=== PATIENT | male | born 1965 | race Caucasian/White ===

== ENCOUNTER → 2023-04-25 | Outpatient (CLI) | payer MEDICAID ==
[~2023-04-25] VITALS: Ht 207 cm; Wt 103.4 kg
[2023-04-25 07:34] VITALS: PULSE 72; RESP 16; O2SAT 96
[2023-04-25] MEDS: albuterol 2.5 MG/3 ML nebule NEB ONE (07:39)
== END | disposition home or self-care (01) ==
LOC: RT 06:57
PROVIDERS: ATTEND Registered Nurse
DX: R09.89 Other specified symptoms and signs involving the circulatory and respiratory systems (principal)
CPT/HCPCS: 94060; 94760

== ENCOUNTER 2024-08-26 14:37 | Inpatient (IN) | payer MEDICAID ==
[~2024-08-26] VITALS: Ht 176.5 cm; Wt 93.6 kg
--- NOTE | 2024-08-26 14:50 | ELECTROCARDIOGRAPH REPORT ---
[facility] Test Date: 2024-08-26 Test Time: 14:40:41 Pat Name: SPENCER MACKENZIE Department: EMERGENCY ROOM Room: Gender: M Manager Customer: ANN : 1965 Requested By: NANCY BAUTISTA Order Number: [id number] Reading MD: Measurements Intervals [place] Rate: 82 P: 43 MO: 162 QRS: -17 QRSD: 149 T: 49 QT: 394 QTc: 461 Interpretive Statements Sinus rhythm Right bundle branch block Please click the below link to view image of tracing.
[2024-08-26 15:10] LABS: MEAN PLATELET VOLUME 6.4 FL (7.4-10.4); RED CELL DISTRIBUTION WIDTH 12.9 % (11.5-14.5)
[2024-08-26 15:19] LABS: CREATININE 1.23 MG/DL (0.60-1.10); TOTAL CARBON DIOXIDE 29.9 MMOL/L (24-32); eCRCL 66 ML/MIN; eGFR 60 ML/MIN
--- NOTE | 2024-08-26 15:26 | RADIOLOGY REPORT ---
DI CHEST,SINGLE VIEW, HISTORY: CP COMPARISON: None None TECHNICAL DATA: 1 view of the chest was obtained. FINDINGS: Lines and tubes: None Cardiomediastinal silhouette: normal Pulmonary vasculature: normal Lung expansion: normal Lung airspace: normal Lung interstitium: normal Pleura: normal Pneumothorax: no Bones: Unremarkable Other: no IMPRESSION: No acute intrathoracic abnormality.
[2024-08-26 15:27] LABS: PRO BRAIN NATRIURETIC PEPTIDE 106 PG/ML (0-125)
--- NOTE | 2024-08-26 17:08 | Physician Documentation ---
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 Patient noticed a cloud that moves in his visual field and just the right eye and has had black spots in his field of vision of both eyes since shortly after 9:00 a.m. this morning. Patient went to urgent care and they were unable to assist them and his who works for an [employer] took him to the [employer] for evaluation of the retina. He had his eye dilated in the retina evaluated and there was no evidence of retinal detachment or other acute ophthalmological emergency. Patient has also had headaches on and off for several weeks. Patient has a current headache a 6/10 in his diffuse. Patient then states that he had an episode of slurred speech that lasted maybe 15 minutes this morning. The exact time is unclear. Last known normal time is 9:00 a.m.. Patient also states that he had some sharp chest pain yesterday while at work that lasted maybe 15 minutes with no associated symptoms. Review of systems: All systems were reviewed and are negative except for what is indicated in the history of present illness. Past Medical History: None Past Surgical History: None Social History: No tobacco use, no alcohol use, no drug use Medications: Reviewed as documented Nursing Notes Allergies: Reviewed as documented in Nursing Notes Medication Reconciliation Allergies: Coded Allergies: Penicillins (Verified Allergy, Unknown, 08/26/24) Scheduled Aspirin (Aspirin EC), 1 TAB PO DAILY, (Reported) Atorvastatin Calcium (Atorvastatin Calcium), 1 TAB PO DAILY, (Reported) Baclofen (Baclofen), 1 TAB PO DAILY, (Reported) Scheduled PRN Cyclobenzaprine* (Cyclobenzaprine*), 1 TAB PO TID PRN for pain, (Reported) Review of Systems All Other Systems at this time: Reviewed and Negative ROS Patient denies any other acute symptoms other than above. All other systems are negative Physical Exam Vital Signs: RN Vital Signs have been reviewed: Yes, Temperature: 98.3, Source: Temporal, Heart Rate: 66, Respiratory Rate: 14, BP: 139/91, Pulse Oximetry: 97, Weight: 93.640 Oxygen Flow Rate: 0 Pulse Oximetry Reflects: adequate oxygenation General Appearance General Appearance: No distress HEENT: Normal OP, moist oral mucosa, right pupil is dilated compared to the left secondary to recent a dry so from the [employer]. Pupil is sluggish. Retina appears unremarkable. Normal vessels, normal disc and cup. No evidence of retinal detachment., EOMI Neck: supple, normal ROM, trachea midline Pulmonary: No respiratory distress, CTA, BS equal Cardiac: RRR, no murmur, rub or gallop, GI: nondistended, soft, nontender, normal bowel sounds, no guarding, no rebound Extremities: normal ROM, no swelling, non-tender Skin: intact, dry, warm, no rashes Neuro: AAOx3, speech is clear, no focal motor weakness Psych: normal affect, good eye contact, no apparent hallucination, normal speech Progress Progress Note Spoke with tele neurologist regarding patient's symptoms of vision changes. Recommends continuing his aspirin into admit for MRI and further evaluation. Not a TNK candidate Results/Orders Results/Orders Orders - NANCY BAUTISTA MD Chest,Single View (08/26/24 14:49) Monitor (08/26/24 14:49) Saline Lock (08/26/24 14:49) Oxygen (08/26/24 14:49) Ct Stroke Alert (08/26/24 17:20) Cta Neck/Head (08/26/24 17:24) [place] Prov.Neuro Consult (08/26/24 17:08) Completed Orders - NANCY BAUTISTA MD Chest,Single View (08/26/24 14:49) Cbc/Diff (08/26/24 14:49) PBNP (08/26/24 14:49) Electrocardiogram (08/26/24 14:49) Hs Troponin I W Calculations (08/26/24 14:49) Hs Troponin I W Calculations (08/26/24 16:49) Hs Troponin I W Calculations (08/26/24 17:49) CMP (08/26/24 14:49) Ct Stroke Alert (08/26/24 17:20) Cta Neck/Head (08/26/24 17:24) Prochlorperazine Inj (Compazine Inj) (08/26/24 17:10) Iohexol 350mg/Ml 100ml (Omnipaque 350mg/ (08/26/24 17:12) Aspirin 81mg Chew Tablet (Aspirin 81mg C (08/26/24 18:20) Lorazepam Tablet (Ativan Tablet) (08/26/24 18:30) Hgb A1c (08/26/24 14:44) MG (08/26/24 14:44) PHOS (08/26/24 14:44) TSH (08/26/24 14:44) Vital Signs 08/26/24 08/26/24 08/26/24 08/26/24 14:45 15:56 16:00 16:15 Temp 98.3 Pulse 79 66 Resp 18 15 14 B/P (MAP) 139/84 139/91 (107) Pulse Ox 98 97 O2 Flow Rate 0 0 08/26/24 08/26/24 08/26/24 08/26/24 17:30 19:19 19:53 21:03 Pulse 61 52 66 Resp 15 16 18 B/P (MAP) 135/93 (107) 125/80 (95) 169/114 (132) Pulse Ox 97 95 99 96 O2 Delivery Room Air* O2 Flow Rate 0 0 FiO2 21 Laboratory Tests Test 08/26/24 14:44 08/26/24 17:38 08/26/24 18:51 White Blood Count 7.7 Red Blood Count 4.85 Hemoglobin 15.0 Hematocrit 42.8 Mean Corpuscular Volume 88.3 Mean Corpuscular Hemoglobin 31.0 Mean Corpuscular Hemoglobin Concent 35.1 Red Cell Distribution Width 12.9 Platelet Count 280 Mean Platelet Volume 6.4 L Neutrophils (%) (Auto) 56.7 Lymphocytes (%) (Auto) 33.4 Monocytes (%) (Auto) 7.2 Eosinophils (%) (Auto) 2.2 Basophils (%) (Auto) 0.5 Neutrophils # (Auto) 4.4 Lymphocytes # (Auto) 2.6 Monocytes # (Auto) 0.6 Eosinophils # (Auto) 0.2 Basophils # (Auto) 0.0 CBC Comment Sodium Level 142 Potassium Level 3.9 Chloride Level 107 Carbon Dioxide Level 29.9 Anion Gap 5 L Blood Urea Nitrogen 19 H Creatinine 1.23 H Estimated GFR/1.73 m2 60 BUN/Creatinine Ratio 15.4 Glucose Level 103 Hemoglobin A1c 5.1 Calcium Level 9.4 Phosphorus Level 3.2 Magnesium Level 2.0 Total Bilirubin 0.6 Aspartate Amino Transf (AST/SGOT) 23 Alanine Aminotransferase (ALT/SGPT) 41 Alkaline Phosphatase 82 Troponin I High Sensitivity 8 8 9 Pro-B-Type Natriuretic Peptide 106 Total Protein 7.4 Albumin 3.7 Globulin 3.7 Albumin/Globulin Ratio 1.0 L Thyroid Stimulating Hormone (TSH) 1.61 Chemistry Comments Troponin I High Sens Percent Delta 0 12 Troponin I Hi Sens Absolute Change 0 1 EKG/XRAY/CT/US/VASC/MRI EKG : Additional Comment EKG interpreted by myself shows time of 14 40, rate 82, sinus rhythm, normal axis, right bundle-branch block, no ST changes Chest X-Ray : Additional Comments Chest x-ray interpreted by myself shows no effusions, no infiltrates and normal cardiac silhouette Medical Decision Making Findings Differential diagnosis includes but is not limited to: Acute CVA, electrolyte abnormality, complex migraine, acute coronary syndrome, retinal detachment, amaurosis fugax, vitreous hemorrhage EKG independent interpretation: Performed at 2:40 p.m.. Normal sinus rhythm, heart rate 82, right bundle-branch block, leftward axis Chest x-ray, single view, indication: Chest pain Independent interpretation: Lungs are clear, normal mediastinum, normal cardiac silhouette CT head without IV contrast, indication: Visual changes, slurred speech Impression: No intracranial hemorrhage. Right frontal 1.3 cm hypodense region could represent acute infarction. Recommend MRI brain to evaluate. 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 V4 segment demonstrates severe narrowing focally. These findings are concerning for acute occlusion / thrombosis. Recommend neuro IR consultation. Dominant right vertebral artery. Laboratory data independent interpretation: CBC: CBC unremarkable CMP: BUN and creatinine are mildly elevated at 19 and 1.23 1st troponin: 8 2nd troponin: Pending Emergency department course/medical decision-making: Patient is a 58-year-old man who presents with a couple of different types of visual changes. Patient also had associated slurred speech that has since resolved. Patient continues to have the this should changes with an associated headache. I suspect acute complex migraine. Patient will be given Compazine 10 mg IV. However can not rule out ischemic stroke. The chest pain the patient had is atypical for acute coronary syndrome and is not thought to be of concern at this time. No other focal neurological findings on exam. Patient would not be a tPA candidate given his current NIH stroke scale score of 0. Patient does not describe amaurosis fugax or vision loss. Because of the patient's earlier ophthalmological exam I do not suspect a primary ophthalmological emergency. Patient isn't a candidate for thrombolytics because his NIHSS score is 0 and he is well beyond the 4 1/2 hour window for thrombolytics. In regards to the left vertebral artery being occluded it is unclear if this is chronic and if this may be contributing to his symptoms. Consultation/communications: Care the patient will be transferred to Dr. Pacheco at 6:00 p.m. to complete follow up of the head and neck imaging and disposition. Differential Dx:Considerations: Include: Mascorro's Palsey, Electrolyte imbalance, Mass lesion, Subarachnoid Hemorrhage, TIA Departure Disposition: ADMITTED INPATIENT Admitted to Inpatient Unit: yes, to hospitalist Impression: Primary Impression: Vision changes Additional Impression: Suspected stroke Condition: Guarded Referrals: NO PRIMARY CARE PROVIDER (PCP) Education Educated: Patient, Family Educated regarding: diagnosis, treatment Critical Care Note Total Time (mins): 45 Critical Care Note The very real possibility of a deterioration of this patient's condition required the highest level of my preparedness for sudden, emergent intervention. I provided critical care services, which included medication orders, frequent reevaluations of the patient's condition and response to treatment, ordering and reviewing test results, and discussing the case with various consultants. Excludes time spent performing separately billable procedures. The critical care time associated with the care of the patient was 45 minutes not counting procedures Signature Scribe Signature: No scribe Attestation: The note accurately reflects work and decisions made by me.Bear Pacheco MD 08/26/24 18:50 No [email or web address] Douglass MD Aug 26, 2024 17:08 BEAR PACHECO MD Aug 26, 2024 18:51
--- NOTE | 2024-08-26 17:51 | RADIOLOGY REPORT ---
CT CT STROKE ALERT Indication: visual changes, slurred speech EXAM DATE: 08/26/2024 05:18 PM COMPARISON: None TECHNIQUE: CT of the head without intravenous contrast. RADIATION DOSE: CTDIvol: 66.2 mGy, DLP: 1248 mGy*cm FINDINGS: There is no intracranial hemorrhage. There is no extra-axial fluid, mass, mass effect or midline shif t. The ventricles are midline and normal in size. Basilar cisterns are patent. 1.3 cm right frontal s ubcortical hypodense region The paranasal sinuses and mastoids are well-pneumatized. Imaged portion of the orbits are unremarkabl e. IMPRESSION: No intracranial hemorrhage. Right frontal 1.3 cm hypodense region could represent acute infarction. Recommend MRI brain to evalu ate. Findings communicated to the emergency room at 5:48 p.m. On 08/26/2024.
--- NOTE | 2024-08-26 17:51 | RADIOLOGY REPORT ---
EXAM: CT CTA NECK/HEAD DATE OF SERVICE: 08/26/2024 05:20 PM ORDERING PHYSICIAN: NANCY BAUTISTA REASON FOR EXAM: visual changes, slurred speech TECHNIQUE: CTA of the brain and neck was performed after the administration of contrast . Axial imag es of the head and neck are obtained. Coronal and sagittal images were then reformatted for review. M IP reformats were obtained and reviewed. COMPARISON: Concurrent CT head FINDINGS: FINDINGS: The right common carotid artery demonstrates no high-grade stenosis. Right internal carotid artery demonstrates no high-grade stenosis. Right middle cerebral artery demonstrates no high-grade stenosis. The right anterior cerebral artery demonstrates no high-grade stenosis. The left common carotid artery demonstrates no high-grade stenosis. Left internal carotid artery demonstrates no high-grade stenosis. The left middle cerebral artery demonstrates no high-grade stenosis. The left anterior cerebral artery demonstrates no high-grade stenosis. The right vertebral artery is dominant and demonstrates no high-grade stenosis. The left vertebral artery V1 segment is occluded. The V2 segment is occluded along its proximal to m id segment. There is faint reconstitution of the distal V2 segment. The V4 segment demonstrates placido re narrowing focally, greater than 95% narrowing Basilar artery demonstrates no high-grade stenosis. The bilateral posterior cerebral arteries demonstrate no high-grade stenosis. Moderate cervical degenerative disc disease. 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 V4 segment demonstrates severe narrowing focally. These findings are concerning for acute occlusion / thrombosi s. Recommend neuro IR consultation. Dominant right vertebral artery. Critical Result: Stroke Alert /left vertebral artery occlusion Findings discussed with NANCY BAUTISTA at 08/26/2024 05:58 PM, and acknowledged receipt and understan ding of the findings. ..
--- NOTE | 2024-08-26 18:50 | [facility] REPORT ---
[facility] Procedure Note [facility] Procedure Note Consult [facility] Note # Demographics Consult Type: Acute Stroke Level 2 (4.5-24 hrs) Patient Location: Emergency Room First Name: SPENCER Last Name: GURDEEP Date of : 1965 Age: 58 Gender: Male Facility: [facility] Time of Initial Page (): 08/26/2024 18:24 Time of Return Call (): 08/26/2024 18:24 # HPI History: presented initially with chest pain. During the workup, he reported experiencing vision changes, specifically blurry vision and has been seeing black dots in both eyes. No focal weakness/numbness in extremities. Went to see eye doctor and was told everything was fine. +headache - right sided dull headache. On/off headache. Headache been going on for 1 month -- usually when he gets up. The patient's last known assessment was at 9 a.m. on the day of the current evaluation. As part of the workup, a CT scan of the head and imaging of the vertebral artery (V1 and V2 segments) were performed. Associated Symptoms: - headache # Scores Time of exam and NIHSS (): 08/26/2024 18:38 Level of Consciousness 1a: [0] = Alert; keenly responsive LOC Questions 1b: [0] = Answers both questions correctly LOC Commands 1c: [0] = Performs both tasks correctly Best Gaze 2: [0] = Normal Visual 3: [0] = No visual loss Facial Palsy 4: [0] = Normal symmetrical movements Motor Arm Left 5a: [0] = No drift Motor Arm Right 5b: [0] = No drift Motor Leg Left 6a: [0] = No drift Motor Leg Right 6b: [0] = No drift Limb Ataxia 7: [0] = Absent Sensory 8: [0] = Normal Best Language 9: [0] = No aphasia Dysarthria 10: [0] = Normal Extinction and Inattention 11: [0] = No abnormality NIHSS Total: 0 # Data Time Head CT personally read by me (): 08/26/2024 18:[address]: - per radiologist read - no bleed - right frontal hypodensity - could be artifact CTA Head: - Left VA occlusion. Right VA is open. # Assessment Impression: - Stroke Mimic - Blurry vision. NIHSS 0. Difficult to tell if the left VA occlusion is causing these symptoms or what's the chronicity of these findings. He's not interventional candidate since NIHSS 0. # Plan Thrombolytic/Intervention: NOT IV Thrombolysis or IA Intervention candidate Thrombolytic Exclusion: > 4.5 hours Intraarterial Exclusion: - non-disabling - no large vessel occlusion (LVO) Target Blood Pressure: - SBP < 220 - DBP < 120 Labs: - hemoglobin A1c - lipid panel - ua - B12 - TSH Imaging: (urgency: routine): - Would recommend MRI brain wwo contrast since he's been having headaches for the past month, especially upon waking up. Therapy/Evaluation: - NPO until swallow evaluation - PT/OT evaluation - speech/swallow consultation Medication: - aspirin 81 mg daily - start statin with goal of LDL < 70 DVT Prophylaxis: - chemical DVT prophylaxis Other: - If patient has any neurological deterioration please call me back immediately - permissive hypertension - telemetry monitoring - I have discussed my recommendations with the referring provider - would not pursue stroke work-up if MRI is negative Disposition: admit # Demographics First Name: SPENCER Last Name: GURDEEP Facility: [facility] Neuro Consult Order placed for: Yes KSENIA LEON MD Aug 26, 2024 18:50
[2024-08-26] MEDS ORDERED: CYCL-1 PO (18:58)
[2024-08-26] MEDS ORDERED: ASPI-1397 PO (18:58)
[2024-08-26] MEDS ORDERED: ATOR-2 PO (18:58)
[2024-08-26] MEDS ORDERED: BACL10TA2 PO (18:58)
[2024-08-26] MEDS ORDERED: magnesium sulf-water 2g/50mL 50 ML IV PRN (21:10)
[2024-08-26] MEDS ORDERED: potassium Cl 20 mEq SR tablet PO PRN ×2 (21:10)
[2024-08-26] MEDS ORDERED: ondansetron/PF 4mg/2ml inj IV PRN (21:10)
[2024-08-26] MEDS ORDERED: potassium Cl 40MEQ/1/2NS 520ml 520 ML IV PRN (21:10)
[2024-08-26] MEDS ORDERED: magnesium Cl slow-release 64mg tablet PO PRN (21:10)
[2024-08-26] MEDS ORDERED: mag hydrox/Alum hydrox/simeth 30ml oral suspension PO PRN (21:10)
[2024-08-26] MEDS ORDERED: magnesium sulf-water 4G/100mL 100 ML IV PRN (21:10)
[2024-08-26] MEDS ORDERED: magnesium hydroxide 30ml (MOM) UD suspension PO PRN (21:10)
[2024-08-26] MEDS: normal saline 1000ml 1,000 ML IV SCH (21:36)
[2024-08-26 21:38] LABS: APTT 26 SECONDS (22-32); INR 1.0 INR
[2024-08-26 21:40] LABS: PHOSPHORUS 3.2 MG/DL (2.3-4.5)
[2024-08-26] MEDS: PERFLUTREN PROTEIN-A MICROSPHR (Optison) 0.22 MG/ML 3ML VIAL IV ONE (21:40)
[2024-08-26 21:56] LABS: LEUKOCYTE ESTERASE ,URINE NEGATIVE (Neg); NITRITES, URINE NEGATIVE (Neg); OCCULT BLOOD,URINE NEGATIVE (Neg)
[2024-08-26 21:58] LABS: UA COLLECTION TYPE CLN CATCH MIDSTREAM
[2024-08-26 22:24] VITALS: BP 147/72; PULSE 66; RESP 18; TEMP 97.1; O2SAT 97
--- NOTE | 2024-08-26 22:24 | HISTORY AND PHYSICAL-Residence ---
History & Physical Providers to CC Resident Creating Document: RUY RITCHIE RES ~ History of Present Illness Reason for Admit\Complaint: Vision changes History of Present Illness This 58-year-old male with a past medical history of hypertension, hyperlipidemia presented to the ER with a chief complaint of vision changes. Stated that he was mowing lawn this morning at around 9:30 a.m. and he noticed blurry vision in the right eye and black spots in bilateral vision field. Denies any nausea, vomiting, weakness or sensory changes in his extremities, difficulty walking, difficulty talking. He also complains of increased frequency of headaches in the last two months which are sometimes diffuse, right-sided, left-sided or at the back of the yet. Now, complains of mild headache in the back of the head. Mentioned that he had sharp left-sided chest pain that lasted for 20 minutes and resolved with nitro. He had nitro because he had cardiac catheterization in the past but no stenting done. Denies any palpitations, shortness of breath, nausea or vomiting, constipation or diarrhea, dysuria. States that his symptoms improved in between but now feels like the symptoms are coming back. 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 Was told that his retina is okay and for that needed eyedrops for pupils dilation. Denies any stroke in the past and similar symptoms in the past. Denies any history of AFib in the past. Tele neurology recommended to continue his home medication aspirin and Lipitor and an MRI head with and without contrast. Per tele neurology, no acute interventions needed despite him having left vertebral artery thrombosis on head/neck CTA. Patient in his family denied being diagnosed with any vertebral artery occlusion in the past. Denies any history of migraines. Patient was already eating hamburger and almost finished it by the time I entered the room and I recommended him not to eat [place] fries that he also has. Patient understood and did not have [place] fries. Allergies: Coded Allergies: Penicillins (Verified Allergy, Unknown, 08/26/24) Home Medications Home Medications Active Reported Baclofen 10 Mg Tablet 1 Tab PO DAILY 30 Days Cyclobenzaprine* (Cyclobenzaprine HCl) 10 Mg Tablet 1 Tab PO TID PRN Atorvastatin Calcium 80 Mg Tablet 1 Tab PO DAILY Aspirin EC (Aspirin) 81 Mg Tablet.dr 1 Tab PO DAILY Past Medical History Past Medical History Hypotension, hyperlipidemia Past Surgical History Surgical History Comment Cardiac catheterization without any stenting, tonsillectomy, appendectomy, bilateral shoulder tendon repair, back surgery, esophageal surgery-one able to mentioned the exact name of the surgery-stated that it was done for GERD Past Social History Social History Comment Smoked tobacco for 10 years and quit doing it 20 years back. Then chewed nicotine. Vapes nicotine for one year and quit two years back. Sober for two years and states that he drank a lot(nearly a case of vanco in a day) before that. Denied abusing any other recreational drugs ROS ROS Constitutional: No fever, chills, dizziness, weakness, weight gain or loss Eyes: Right-sided blurry vision and black spots in bilateral visual singh. No pain, erythema, discharge ENT: No sore throat, epistaxis, tinnitus Cardiovascular: No chest pain, chest pressure, chest discomfort, palpitations, syncope, lower extremity edema, paroxysmal nocturnal dyspnea Respiratory: No shortness of breath, cough, hemoptysis Gastrointestinal: Normal appetite. No nausea, vomiting, diarrhea, constipation, hematemesis, abdominal pain, bloating, melena or fresh blood Genitourinary: No frequency, urgency, nocturia, hematuria or dysuria Musculoskeletal: No arthralgias or myalgias Integumentary: No change in skin, hair, nails. No swelling, bruising, abrasions Neurologic: No headache, neck pain, numbness or tingling of the extremities, weakness Psychiatric: No delusions, depression, loss of interest in normal activity or change in sleep pattern, hallucinations, suicidal ideations Endocrine: No fatigue, weakness, polydipsia, polyuria, change in appetite, heat or cold intolerance, sweating, dry skin Hematological: No bleeding, petechiae, bruising Allergies: No asthma or urticaria Exam Vitals: Vital Signs Date Time Temp Pulse Resp B/P (MAP) Pulse Ox O2 Delivery O2 Flow Rate FiO2 08/26/24 21:03 66 18 169/114 (132) 96 08/26/24 19:53 Room Air* 0 21 08/26/24 14:45 98.3 General: Alert and oriented x4 HEENT: Normocephalic and atraumatic. Pupils equal round reactive to light and accommodation. Extraocular movements intact. Oral and nasal mucosa moist Neck: Trachea is in midline. No masses or JVD Chest: Bilateral normal breath sounds. No crackles, rhonchi or wheezes Cardiovascular: Regular rate and rhythm. S1-S2 normal. No rubs or murmurs Abdomen: Soft, nontender nondistended. Bowel sounds present Extremities: No cyanosis, clubbing or edema Central Nervous System: No gross sensory or motor deficits. CN II to XII grossly intact. No cerebellar signs Skin: Warm and dry Diagnostic Data Last Recorded Lab Results: 08/26/24 1444 08/26/24 1444 Diagnostic Data: Laboratory Tests Test 08/26/24 21:20 Prothrombin Time 10.0 SECONDS (9.0-12.0) INR International Normalized Ratio 1.0 INR Activated Partial Thromboplast Time 26 SECONDS (22-32) Coagulation Comments Advance Care Planning Advanced Care plannin - 30 Minutes Additional Plan Acute stroke vs stroke mimic Continues to have right-sided blurry vision and black spots in bilateral visual singh Head CT showed Right frontal 1.3 cm hypodense region could represent acute infarction. No intracranial hemorrhage Head/neck CTA showed Occlusion/thrombosis of the left vertebral artery V1 segment, proximal to mid V2 segment. V4 segment demonstrates severe narrowing focally. These findings are concerning for acute occlusion / thrombosis. Recommend neuro IR consultation. Dominant right vertebral artery. NIHSS 0 Tele neurology consult was requested Per tele neurology, no recommendation of IV thrombolysis. Recommended permissive hypertension, MRI brain with and without contrast, NPO until swallow evaluation, PT/OT evaluation, speech/swallow consolidation, checking labs-A1c, lipid panel, UA, B12, TSH and to continue medication aspirin 81 mg p.o. daily and starting statin Ordered the above lab work and imagings PT evaluation Patient already ate a burger. Had no difficulty chewing and swallowing and did not choke Neuro checks ordered Continue telemetry monitoring Chest x-ray showed sinus rhythm and borderline QRS On aspirin 81 mg p.o. daily and Lipitor 80 mg p.o. daily Continue normal saline at 75 cc/hour Recommended outpatient Neurology and Neurosurgery follow up Stable angina Chest pain resolved with nitro yesterday. Asymptomatic now EKG has a artifacts. Sinus rhythm and regular rate. Borderline QRS. No significant ST changes for his age and sex. T-wave inversion lead I Troponins negative Recommend repeating EKG in a.m. History of coronary angiography in the past without any stenting Recommend Lexiscan if negative for acute stroke Hypertension Allow permissive hypertension up to 220/120 mmHg for 24 hours Hyperlipidemia Lipid panel ordered Continue home medication Lipitor 80 mg p.o. daily DVT prophylaxis: Lovenox 40 mg subcutaneous daily starting tomorrow night Diet: Heart healthy and carb controlled diet Ruy Ritchie MD Internal Medicine Resident, PGY 3 Date of Service: Aug 27, 2024 Billing Provider: CRISELDA JIMENEZ MD, MANOJNA RES Aug 26, 2024 22:24
[2024-08-27 02:00] VITALS: BP 101/64; PULSE 58; RESP 18; TEMP 97.6; O2SAT 96
[2024-08-27 05:42] LABS: APTT 26 SECONDS (22-32); INR 1.0 INR
[2024-08-27 05:43] LABS: MEAN PLATELET VOLUME 6.3 FL (7.4-10.4); RED CELL DISTRIBUTION WIDTH 12.8 % (11.5-14.5)
[2024-08-27 05:53] LABS: CHOL/HDL RATIO 2.4 (0.00-4.99); CREATININE 0.72 MG/DL (0.60-1.10); LDL CHOLESTEROL 63 MG/DL (50-100); PHOSPHORUS 3.5 MG/DL (2.3-4.5); TOTAL CARBON DIOXIDE 27.4 MMOL/L (24-32); eCRCL 112 ML/MIN; eGFR > 90 ML/MIN
[2024-08-27 06:00] VITALS: BP 106/46; PULSE 120; RESP 16; TEMP 98.4; O2SAT 100
[2024-08-27] MEDS: aspirin 81mg, enteric-coated 1 TAB TABLET.DR PO SCH (07:23)
[2024-08-27] MEDS: K and/or MAG REPLACEMENT MC SCH (07:25)
[2024-08-27 07:31] VITALS: RESP 16; O2SAT 100
--- NOTE | 2024-08-27 09:34 | PROGRESS NOTE ---
Daily Progress Note Providers to CC No new complaint today asking to be discharged home ~ Central Line/PICC still needed: No Schuster-Non Protocol Schuster Indications Met/Not Met: F/C Indications Not Met Antibiotic Timeout Antibiotic Ordered?: No MRSA Education MRSA Education Provided to pt: No Subjective As above Objective Vital Signs Date Time Temp Pulse Resp B/P (MAP) Pulse Ox O2 Delivery O2 Flow Rate FiO2 08/27/24 07:31 16 100 Room Air 0.0 21 08/27/24 06:00 98.4 120 106/46 (66) Vital signs, stable ,afebrile. Pulse Oximetry reflects adequate oxygenation. General: well developed, well nourished. Awake , alert, and oriented x4, resting comfortably in the bed, in no acute distress . Skin: Warm, dry, no pallor, no rash or petechiae. HEENT: Atraumatic, normocephalic, EOMI, anicteric sclera B; pink conjunctiva; PERRLA, normal oropharynx, moist oral and nasal mucosa. Tympanic membrane , nose , throat clear. Neck: Trachea midline. Supple, full range of motion, no JVD, bruit , hepatojugular reflex , lymphadenopathy or masses, or other lesions Cardiac: Regular rhythm, regular rate no murmurs, rubs, or gallops. Normal S1 and S2, no S3 noticed. PMI is normal. Respiratory: Equal breath sounds bilaterally, no tachypnea; lungs clear to auscultation bilaterally, no wheezing ,rub or rales, or crackles. Chest wall is symmetric and without deformity. No signs of trauma. Chest wall is nontender. No signs of respiratory distress. Resonance is normal upon percussion bilaterally. Gastrointestinal: Abdomen symmetric, non-distended, soft, non-tender, normal bowel sounds x4 quadrant, normoactive, no hepatosplenomegaly , no masses , no bruit, no flank pain bilaterally. No voluntary guarding, rebound, or rigidity. No tenderness to percussion. No pulsatile masses. Equal femoral pulses. No Valdes's sign or McBurney point tenderness. Back; no CVA tenderness bilaterally, no deformities. Neck and back are without deformity as well. No tenderness noted on palpation of the spinous processes. Spinous processes are midline. Cervical, thoracic, and lumbar paraspinal muscles are not tender and are without spasm. : normal external genitalia, without lesions, swelling, masses or tenderness. Musculoskeletal: Extremities, normal range of motion, non-tender, muscle strength 5/5 x 4. Negative Homans signs bilaterally on lower extremity. Distal pulses full symmetrical, no clubbing, cyanosis , edema. Neurological: Speech is clear, alert, and oriented x 4. No motor or sensory deficit, deep tendon reflexes normal, cerebellar intact. Cranial nerves II-XII intact. Psych: Alert and or appropriate, normal affect. Vascular: Good distal pulses, which are equal x4; capillary refill less than 2 seconds. Lymphatic, no lymphadenopathy. Result Diagram: 08/27/24 0510 08/27/24 0510 Coagulation Studies Laboratory Tests Test 08/27/24 05:10 Prothrombin Time 10.1 SECONDS (9.0-12.0) INR International Normalized Ratio 1.0 INR Activated Partial Thromboplast Time 26 SECONDS (22-32) Coagulation Comments Problem\Assessment\Plan Assessment/ Plan Acute stroke vs stroke mimic Continues to have right-sided blurry vision and black spots in bilateral visual singh Head CT showed Right frontal 1.3 cm hypodense region could represent acute infarction. No intracranial hemorrhage Head/neck CTA showed Occlusion/thrombosis of the left vertebral artery V1 segment, proximal to mid V2 segment. V4 segment demonstrates severe narrowing focally. These findings are concerning for acute occlusion / thrombosis. Recommend neuro IR consultation. Dominant right vertebral artery. NIHSS 0 Tele neurology consult was requested Per tele neurology, no recommendation of IV thrombolysis. Recommended permissive hypertension, MRI brain with and without contrast, NPO until swallow evaluation, PT/OT evaluation, speech/swallow consolidation, checking labs-A1c, lipid panel, UA, B12, TSH and to continue medication aspirin 81 mg p.o. daily and starting statin Ordered the above lab work and imagings PT evaluation Patient already ate a burger. Had no difficulty chewing and swallowing and did not choke Neuro checks ordered Continue telemetry monitoring Chest x-ray showed sinus rhythm and borderline QRS On aspirin 81 mg p.o. daily and Lipitor 80 mg p.o. daily Continue normal saline at 75 cc/hour Recommended outpatient Neurology and Neurosurgery follow up Stable angina Chest pain resolved with nitro yesterday. Asymptomatic now EKG has a artifacts. Sinus rhythm and regular rate. Borderline QRS. No significant ST changes for his age and sex. T-wave inversion lead I Troponins negative Recommend repeating EKG in a.m. History of coronary angiography in the past without any stenting Recommend Lexiscan if negative for acute stroke Hypertension Allow permissive hypertension up to 220/120 mmHg for 24 hours Hyperlipidemia Lipid panel ordered Continue home medication Lipitor 80 mg p.o. daily DVT prophylaxis: Lovenox 40 mg subcutaneous daily starting tomorrow night Diet: Heart healthy and carb controlled diet Sepsis Screening Reassessment Date: Aug 27, 2024 Date of Service: Aug 27, 2024 Billing Provider: KARIN LAKHANI MD Common Visit Codes: [id number] INP/OBS CARE(MOD) KARIN LAKHANI MD Aug 27, 2024 09:34
[2024-08-27 10:00] VITALS: BP 124/75; PULSE 65; RESP 14; TEMP 98.1; O2SAT 98
--- NOTE | 2024-08-27 11:03 | RADIOLOGY REPORT ---
EXAM: MR MRI HEAD HISTORY: r/o stroke. With and without contrast COMPARISON: CT scan of the head dated 08/26/2024. TECHNIQUE: Multiplanar multisequence pre and post IV contrast MR images of the brain were performed. 5 mL Clariscan gadolinium contrast were used. FINDINGS: No intracranial mass, midline shift, hydrocephalus, or abnormal postcontrast enhancement. T here is mild high T2-FLAIR signal abnormality in the periventricular white matter and mild spotty sig nal abnormality in the bicerebral white matter. The diffusion-weighted images do not demonstrate rest ricted diffusion. There is a small cavum septum pellucidum. Flow voids are present in the major intra cranial vessels. The corpus callosum, sella, and pituitary are unremarkable. There is mild right cere bellar tonsillar ectopia without evidence of Chiari I malformation. The optic globes are symmetric. T here is mucosal thickening of the bilateral maxillary, ethmoid, and sphenoid sinuses. The bilateral m astoid air cells are clear. IMPRESSION: 1. Mild chronic ischemic changes without evidence of acute infarct or other acute intracranial proces s. 2. Mild paranasal sinus disease.
[2024-08-27 12:00] VITALS: BP 128/78; PULSE 62; RESP 16; TEMP 97.6; O2SAT 98
--- NOTE | 2024-08-27 14:09 | CARDIOLOGY REPORT ---
APPROVED REPORT EXAM: Comprehensive 2D, Doppler, and color-flow Echocardiogram with saline. 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 149.8 cm/s AoV VTI 28.7 cm AO Peak GR. 9.0 mmHg AO Mean GR. 5 mmHg LVOT VTI 26.41 cm LVOT Peak Alonzo. 120.0 cm/s YOLANDA(VTI)/BSA 3.63 cm2/m2 YOLANDA (VTI) 3.63 cm2 Mitral Valve MV E Velocity 91.5 cm/s MV Peak Gr. 4 mmHg MV DECEL TIME 220 ms MV A Velocity 78.9 cm/s MV PHT 80 ms E/A Ratio 1.2 MVA (PHT) 2.75 cm2 MV VMax95.5 cm/s TDI Lateral E' P. V11.77 cm/s E/Lateral E' 7.8 Tricuspid Valve TR P. Velocity 195 cm/s RAP ESTIMATE 10 mmHg TR Peak Gr. 15 mmHg RVSP 25 mmHg LEFT VENTRICLE Normal LV size and wall thickness. Overall systolic function is normal. Overall LVEF is 65-70%. RIGHT VENTRICLE Right ventricle is mild to moderately dilated with adequate function. ATRIA The left atrium size is normal. Saline study was performed with 2 IV injections of 10 ccs of agitated normal saline at rest, with cough, and with valsalva. Negative saline study for right to left flow. AORTIC VALVE Trileaflet AV appears mildly sclerotic without stenosis. No insufficiency. MITRAL VALVE Mild mitral annular calcification without stenosis. Trace regurgitation. TRICUSPID VALVE The tricuspid valve is normal in structure with trace regurgitation. PULMONIC VALVE The pulmonary valve is normal in structure with physiologic insufficiency. GREAT VESSELS The aortic root is normal in size. The ascending aorta is normal in size. The IVC is normal in size a nd collapses >50% with inspiration. PERICARDIUM Normal pericardium. No effusion. Other Information Study Quality: Adequate Conclusion Overall LVEF is 65-70%. Normal LV size and wall thickness. Overall systolic function is normal. Right ventricle is mild to moderately dilated with adequate function. Saline study was performed with 2 IV injections of 10 ccs of agitated normal saline at rest, with cou gh, and with valsalva. Negative saline study for right to left flow. Trileaflet AV appears mildly sclerotic without stenosis. No insufficiency. Mild mitral annular calcification without stenosis. Trace regurgitation. The tricuspid valve is normal in structure with trace regurgitation. The pulmonary valve is normal in structure with physiologic insufficiency. Normal pericardium. No effusion.
--- NOTE | 2024-08-27 14:15 | DISCHARGE SUMMARY ---
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 Stated that he was mowing lawn this morning at around 9:30 a.m. and he noticed blurry vision in the right eye and black spots in bilateral vision field. Denies any nausea, vomiting, weakness or sensory changes in his extremities, difficulty walking, difficulty talking. He also complains of increased frequency of headaches in the last two months which are sometimes diffuse, right-sided, left-sided or at the back of the yet. Now, complains of mild headache in the back of the head. Mentioned that he had sharp left-sided chest pain that lasted for 20 minutes and resolved with nitro. He had nitro because he had cardiac catheterization in the past but no stenting done. Denies any palpitations, shortness of breath, nausea or vomiting, constipation or diarrhea, dysuria. States that his symptoms improved in between but now feels like the symptoms are coming back. 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 Was told that his retina is okay and for that needed eyedrops for pupils dilation. Denies any stroke in the past and similar symptoms in the past. Denies any history of AFib in the past. Tele neurology recommended to continue his home medication aspirin and Lipitor and an MRI head with and without contrast. Per tele neurology, no acute interventions needed despite him having left vertebral artery thrombosis on head/neck CTA. Patient in his family denied being diagnosed with any vertebral artery occlusion in the past. Denies any history of migraines. Patient was already eating hamburger and almost finished it by the time I entered the room and I recommended him not to eat [place] fries that he also has. Patient understood and did not have [place] fries. After admission patient was extensively evaluated all the laboratory study no new changes including in imaging study, today patient feels better, asking to be discharged home for family emergency reasons, I recommended to the patient to continue inpatient evaluation and treatment, patient elected to be discharged, he will be discharged in stable condition follow-up PCP Neurology in the morning, medication reconciled, recommended to return to emergency department if condition worsens, today on physical exam Vital signs, stable ,afebrile. Pulse Oximetry reflects adequate oxygenation. General: well developed, well nourished. Awake , alert, and oriented x4, resting comfortably in the bed, in no acute distress . Skin: Warm, dry, no pallor, no rash or petechiae. HEENT: Atraumatic, normocephalic, EOMI, anicteric sclera B; pink conjunctiva; PERRLA, normal oropharynx, moist oral and nasal mucosa. Tympanic membrane , nose , throat clear. Neck: Trachea midline. Supple, full range of motion, no JVD, bruit , hepatojugular reflex , lymphadenopathy or masses, or other lesions Cardiac: Regular rhythm, regular rate no murmurs, rubs, or gallops. Normal S1 and S2, no S3 noticed. PMI is normal. Respiratory: Equal breath sounds bilaterally, no tachypnea; lungs clear to auscultation bilaterally, no wheezing ,rub or rales, or crackles. Chest wall is symmetric and without deformity. No signs of trauma. Chest wall is nontender. No signs of respiratory distress. Resonance is normal upon percussion bilaterally. Gastrointestinal: Abdomen symmetric, non-distended, soft, non-tender, normal bowel sounds x4 quadrant, normoactive, no hepatosplenomegaly , no masses , no bruit, no flank pain bilaterally. No voluntary guarding, rebound, or rigidity. No tenderness to percussion. No pulsatile masses. Equal femoral pulses. No Valdes's sign or McBurney point tenderness. Back; no CVA tenderness bilaterally, no deformities. Neck and back are without deformity as well. No tenderness noted on palpation of the spinous processes. Spinous processes are midline. Cervical, thoracic, and lumbar paraspinal muscles are not tender and are without spasm. : normal external genitalia, without lesions, swelling, masses or tenderness. Musculoskeletal: Extremities, normal range of motion, non-tender, muscle strength 5/5 x 4. Negative Homans signs bilaterally on lower extremity. Distal pulses full symmetrical, no clubbing, cyanosis , edema. Neurological: Speech is clear, alert, and oriented x 4. No motor or sensory deficit, deep tendon reflexes normal, cerebellar intact. Cranial nerves II-XII intact. Psych: Alert and or appropriate, normal affect. Vascular: Good distal pulses, which are equal x4; capillary refill less than 2 seconds. Lymphatic, no lymphadenopathy. *Problems/Diagnosis: (1) Dyslipidemia (2) Vision changes Status: Acute Total Time Spent on D/C: > 30 Minutes Date of Service: Aug 27, 2024 Billing Provider: KARIN LAKHANI MD Common Visit Codes: 35915-[id number] DISCH DAY >30min KARIN LAKHANI MD Aug 27, 2024 14:15
[2024-08-27] MEDS ORDERED: GADOTERATE MEGLUMINE 7.5 MMOL/15 ML VIAL IV ONE (19:06)
[2024-08-27] MEDS ORDERED: enoxaparin 40mg/0.4ml syringe SQ SCH (20:00)
== END 2024-08-27 13:30 | disposition home or self-care (01) | DRG 198 ==
LOC: ER 14:38 → ED HOLD 21:12 → EDBEDREQ 22:03 → ORTHO 4S 22:22
PROVIDERS: ADMIT Internal Medicine Critical Care Medicine; ATTEND Family Medicine
PROC: B3251ZZ Computerized Tomography (CT Scan) of Bilateral Common Carotid Arteries using Low Osmolar Contrast (ICD-10-PCS; principal; 2024-08-26)
PROC: B32G1ZZ Computerized Tomography (CT Scan) of Bilateral Vertebral Arteries using Low Osmolar Contrast (ICD-10-PCS; 2024-08-26)
PROC: B32R1ZZ Computerized Tomography (CT Scan) of Intracranial Arteries using Low Osmolar Contrast (ICD-10-PCS; 2024-08-26)
PROC: B3281ZZ Computerized Tomography (CT Scan) of Bilateral Internal Carotid Arteries using Low Osmolar Contrast (ICD-10-PCS; 2024-08-26)
DX: I20.89 Other forms of angina pectoris (principal); I65.02 Occlusion and stenosis of left vertebral artery; E78.5 Hyperlipidemia, unspecified; I10 Essential (primary) hypertension; Z79.82 Long term (current) use of aspirin; Z79.899 Other long term (current) drug therapy; Z90.49 Acquired absence of other specified parts of digestive tract
CPT/HCPCS: 36415; 70450; 70496; 70498; 70553; 71045; 80053; 80061; 81003; 82607; 83036; 83735; 83880; 84100; 84443; 84484; 85025; 85610; 85730; 87081; 93005; 93306; 96361; 96374; 99291; G0378; J0780; J7030; Q9967

== ENCOUNTER 2024-10-30 12:02 | Emergency (ER) | payer MEDICAID ==
[~2024-10-30] VITALS: Ht 175.3 cm; Wt 84.8 kg
[~2024-10-30 12:02] MED LIST: ASPI-1397 PO; ATOR-2 PO; BACL10TA2 PO; CYCL-1 PO
--- NOTE | 2024-10-30 13:47 | Physician Documentation ---
History of Present Illness ~ Chief Complaint: Laceration Stated Complaint: HAND LAC Time Seen by MD: 13:29 OK to notify your PCP?: Yes Source: patient Mode of Arrival: POV Exam Limitations: no limitations HPI 58 y/o right-handed male who is here due to laceration on his right hand on the palm that occurred a few hours ago. [place] the [place] his dump trailer pinch his right palm and took a chunk out of his palm. Last tetanus within the last five years. AROM of hand is full. Tetanus Within 5 Years: Yes Medication Reconciliation Allergies: Coded Allergies: Penicillins (Verified Allergy, Unknown, 10/30/24) Scheduled Aspirin (Aspirin EC), 1 TAB PO DAILY, (Reported) Atorvastatin Calcium (Atorvastatin Calcium), 1 TAB PO DAILY, (Reported) Baclofen (Baclofen), 1 TAB PO DAILY, (Reported) Scheduled PRN Cyclobenzaprine* (Cyclobenzaprine*), 1 TAB PO TID PRN for pain, (Reported) Past Medical History Past Medical History: No Pertinent History Past Surgical History: noncontributory Lives with: Spouse Lives In: Home Review of Systems All Other Systems at this time: Reviewed and Negative Physical Exam Vital Signs: Temperature: 97.8, Source: Temporal, Heart Rate: 51, Respiratory Rate: 16, BP: 126/80, Pulse Oximetry: 98, Weight: 84.750 Oxygen Flow Rate: 0 Physical Exam General Appearance: Alert, WD/WN. NAD. HEENT: NCAT, PERRL, EOMI. Neck: Supple, trachea midline. Cardiovascular: RRR. No m/r/g. Lungs: CTAB. Breathing unlabored Extremities: AROM OF RIGHT HAND AND DIGITS FULL. SKIN: PIECE OF SKIN ON THENAR PAD MEASURING ABOUT 2CM IN LENGTH X 0.5CM IN WIDTH MISSING, VISIBLE UNDERLYING DERMIS WHICH IS BEEFY RED, APPEARS CLEAN, NO SURROUNDING FOREIGN BODY. Warm/dry, normal color Neurological: Alert and oriented x4, normal gait. Psychiatric: Affect congruent with mood. Procedures Procedure Note WOUND ON RIGHT HAND CLEANED BY SIMPLEX OPERATOR AND SIMPLE DRESSING PLACED, THEN PLACED RIGHT HAND IN VELCRO THUMB SPICA SPLINT Progress Results/Orders Results/Orders Orders - ISMA CORTÉS General Nursing Order (10/30/24 13:40) Vital Signs 10/30/24 13:01 Temp 97.8 Pulse 51 Resp 16 B/P (MAP) 126/80 Pulse Ox 98 O2 Flow Rate 0 Medical Decision Making Differential Dx:Considerations: Include: Abrasion, Avulsion, Contusion, Laceration, Fracture, Hematoma, Neurovascular injury, Retained foreign body Additional Comments NO TENDON INJURY, NO FRACTURE AROM OF HAND/DIGITS FULL. NO EVIDENCE FOR INFECTION. TETANUS IZ UP TO DATE. Departure Time of Disposition: 13:45 Disposition: 01 HOME / SELF CARE / HOMELESS Impression: Primary Impression: Avulsion of skin of hand Qualified Codes: S61.401A - Unspecified open wound of right hand, initial encounter Condition: Stable Discharge Instructions: Deep Skin Avulsion Additional Instructions: WILL NEED TO HEAL BY SECONDARY INTENTION, FROM THE INSIDE OUT DISCUSSED MEDICAL GRADE HONEY (MANUKA HONEY) AND CHANGING DRESSING DAILY IF ANY SIGNS OR SYMPTOMS OF INFECTION INCREASING PAIN, REDNESS, SWELLING RETURN TO ER Referrals: NO PRIMARY CARE PROVIDER (PCP) Education Educated: Patient Educated regarding: diagnosis, treatment, need for follow up Signature Scribe Signature: X Attestation: ISMA WILKINS Oct 30, 2024 13:47
[2024-10-30 14:23] VITALS: BP 132/78; PULSE 89; RESP 16; TEMP 98.6; O2SAT 99
== END 2024-10-30 14:20 | disposition home or self-care (01) ==
LOC: ER 12:03
DX: S61.411A Laceration without foreign body of right hand, initial encounter (principal); Z88.0 Allergy status to penicillin; Z79.82 Long term (current) use of aspirin; Z79.899 Other long term (current) drug therapy; W22.8XXA Striking against or struck by other objects, initial encounter; Y93.89 Activity, other specified; Y92.89 Other specified places as the place of occurrence of the external cause; Y99.8 Other external cause status
CPT/HCPCS: 29125; 99283; A6222; A6449